=== PATIENT | female | born 1940 | race Caucasian/White ===

== ENCOUNTER → 2018-05-29 | Outpatient (CLI) | payer OTHER ==
[~2018-05-29] MED LIST: Lovastatin20 MG; TIROSINT100 MCG; VALS80
== END | disposition home or self-care (01) ==
LOC: LAB SHORT 08:15 → LAB EV 08:15
DX: R35.0 Frequency of micturition (principal); H81.10 Benign paroxysmal vertigo, unspecified ear; H91.92 Unspecified hearing loss, left ear; N18.3 Chronic kidney disease, stage 3 (moderate); E03.8 Other specified hypothyroidism; E78.2 Mixed hyperlipidemia; R73.01 Impaired fasting glucose
CPT/HCPCS: 87086

== ENCOUNTER 2019-02-09 07:44 | Day surgery (SDC) | payer OTHER ==
[~2019-02-09] VITALS: Ht 167.6 cm; Wt 80.8 kg
[~2019-02-09 07:44] MED LIST changes: +LEVO-T88 MCG PO
--- NOTE | 2019-02-09 08:59 | NUR ---
02/09/19 0859 Janis Jaimes BEST WITH AC
== END 2019-02-09 10:30 | disposition home or self-care (01) ==
LOC: ORSCSDS 07:44
PROVIDERS: Internal Medicine Gastroenterology
PROC: 0DJD8ZZ Inspection of Lower Intestinal Tract, Via Natural or Artificial Opening Endoscopic (ICD-10-PCS; principal; 2019-02-09 09:45)
DX: Z12.11 Encounter for screening for malignant neoplasm of colon (principal); K57.30 Diverticulosis of large intestine without perforation or abscess without bleeding; K64.8 Other hemorrhoids; Z86.010 Personal history of colon polyps; I10 Essential (primary) hypertension; E07.9 Disorder of thyroid, unspecified; Z79.899 Other long term (current) drug therapy
CPT/HCPCS: J2704; J7120

== ENCOUNTER → 2020-10-06 | Outpatient (CLI) | payer OTHER ==
[2020-10-07 07:42] LABS: Stool Occult Bld Immuno 1 Negative (NEGATIVE)
== END | disposition home or self-care (01) ==
LOC: LAB SHORT 12:30 → LAB 12:30
PROVIDERS: Physician Assistant
DX: K92.1 Melena (principal)
CPT/HCPCS: 82274

== ENCOUNTER → 2020-10-09 | Outpatient (CLI) | payer OTHER ==
[2020-10-10 09:05] LABS: Stool Occult Bld Immuno 1 Negative (NEGATIVE)
== END | disposition home or self-care (01) ==
LOC: LAB 10:00 → LAB SHORT 10:00
PROVIDERS: Physician Assistant
DX: K92.1 Melena (principal)
CPT/HCPCS: G0328

== ENCOUNTER → 2022-10-12 | Outpatient (CLI) | payer OTHER | END | disposition home or self-care (01) | LOC: LAB SHORT 10:05 | DX: R11.2 Nausea with vomiting, unspecified (principal) | CPT/HCPCS: 87086 ==

== ENCOUNTER → 2024-04-24 | Outpatient (CLI) | payer OTHER ==
[~2024-04-24] MED LIST changes: +LOSA50 PO; +METPRE4DP PO
== END ==
LOC: LAB 11:45 → LAB SHORT 11:45
DX: R30.0 Dysuria (principal)
CPT/HCPCS: 87077; 87086; 87186

== ENCOUNTER 2024-04-26 01:15 | Emergency (ER) | payer OTHER ==
[~2024-04-26] VITALS: Ht 167.6 cm; Wt 69.8 kg
[~2024-04-26 01:15] MED LIST changes: -LOSA50 PO; -METPRE4DP PO
[2024-04-26 01:55] VITALS: BP 183/108
[2024-04-26] MEDS ORDERED: METPRE4DP PO (01:59)
[2024-04-26] MEDS ORDERED: LOSA50 PO (01:59)
[2024-04-26] MEDS ORDERED: DiphenhydrAMINE HCL 25 MG Cap PO ONE (03:20)
== END 2024-04-26 03:26 | disposition home or self-care (01) ==
LOC: ER 01:15
DX: L29.9 Pruritus, unspecified (principal); R21 Rash and other nonspecific skin eruption; I10 Essential (primary) hypertension; E03.9 Hypothyroidism, unspecified; Z88.4 Allergy status to anesthetic agent; Z88.5 Allergy status to narcotic agent; Z79.890 Hormone replacement therapy; Z79.899 Other long term (current) drug therapy
CPT/HCPCS: 99282; A9270

== ENCOUNTER → 2024-08-25 | Outpatient (CLI) | payer OTHER ==
[~2024-08-25] MED LIST changes: +LOSA50 PO; +METPRE4DP PO
== END ==
LOC: LAB SHORT 10:20 → LAB 10:20
DX: R10.84 Generalized abdominal pain (principal)
CPT/HCPCS: 87086

== ENCOUNTER 2024-09-01 09:28 | Day surgery (SDC) | payer OTHER ==
[~2024-09-01] VITALS: Ht 167.6 cm; Wt 69.3 kg
[~2024-09-01 09:28] MED LIST changes: +Balanced Salt Epinephrine Irrigation Solution 500 mL IR SCH; +Diazepam 2 MG Tab PO PRN; +Lidocaine HCl/Pf 1% 5 ML VIAL XX SCH; +Moxifloxacin HCL 0.5 MG/0.1 ML 0.4MLSYR RIGHTEYE SCH; +Ondansetron 4 MG SoluTab MM PRN; +PHENYLEPHRINE\\TROPICAMIDE\\TETRACAINE OPHTHALMIC DILATING SOLN RIGHTEYE PRN; +Povidone-Iodine 450 DROP/30 ML Solution ONE; +Povidone-Iodine 450 DROP/30 ML Solution RIGHTEYE SCH; +Tetracaine HCl/Pf 0.5% Opth Soln 4 ml ONE; +Triamcinolone Inj Susp 40 MG / ML 1ML Vial INJ SCH; +Triamcinolone Inj Susp 40 MG / ML 1ML Vial ONE; +diazePAM 2 MG,diazePAM 5 MG PO SCH
[2024-09-01] MEDS ORDERED: Diazepam 2 MG Tab ONE (09:55)
[2024-09-01] MEDS ORDERED: Diazepam 5 MG Tab ONE (09:55)
--- NOTE | 2024-09-01 10:51 | NUR ---
09/01/24 1051 Dorota Diaz BP 180/80, HR 82, O2 100%. PT RESTING COMFORTABLY WITH BLOW BY AT 10L.
[2024-09-01 11:02] VITALS: BP 159/73
== END 2024-09-01 11:15 | disposition home or self-care (01) ==
LOC: ORSCSDS 09:28
PROVIDERS: Ophthalmology
PROC: 08RJ3JZ Replacement of Right Lens with Synthetic Substitute, Percutaneous Approach (ICD-10-PCS; principal; 2024-09-01 10:30)
DX: H25.813 Combined forms of age-related cataract, bilateral (principal); K21.9 Gastro-esophageal reflux disease without esophagitis; E78.5 Hyperlipidemia, unspecified; I10 Essential (primary) hypertension; Z79.899 Other long term (current) drug therapy
CPT/HCPCS: A9270; J3301; V2632

== ENCOUNTER 2024-09-08 07:59 | Day surgery (SDC) | payer OTHER ==
[~2024-09-08] VITALS: Ht 167.6 cm; Wt 69.6 kg
[~2024-09-08 07:59] MED LIST changes: -Balanced Salt Epinephrine Irrigation Solution 500 mL IR SCH; -Diazepam 2 MG Tab PO PRN; -Lidocaine HCl/Pf 1% 5 ML VIAL XX SCH; -Moxifloxacin HCL 0.5 MG/0.1 ML 0.4MLSYR RIGHTEYE SCH; -Ondansetron 4 MG SoluTab MM PRN; -PHENYLEPHRINE\\TROPICAMIDE\\TETRACAINE OPHTHALMIC DILATING SOLN RIGHTEYE PRN; -Povidone-Iodine 450 DROP/30 ML Solution RIGHTEYE SCH; -Triamcinolone Inj Susp 40 MG / ML 1ML Vial INJ SCH; -diazePAM 2 MG,diazePAM 5 MG PO SCH
[2024-09-08] MEDS ORDERED: Diazepam 2 MG Tab ONE (08:29)
[2024-09-08] MEDS ORDERED: Diazepam 5 MG Tab ONE (08:29)
--- NOTE | 2024-09-08 08:53 | NUR ---
09/08/24 0853 Darling Palmer PATIENT REPORTS ANXIETY LEVEL AT 05/28 PRIOR TO ADMINISTRATION OF VALIUM 7MG PO @ 0843. CALL LIGHT AT BEDSIDE. CONTINUOUS SPO2 AND HR MONITORING IN PLACE. TETRACAINE IN AT 0845. PLEDGETT IN AT 0846.
--- NOTE | 2024-09-08 09:23 | NUR ---
09/08/24 0923 Tanisha Hammonds VITALS AT 0923 BP:143/63 P:69 O2:97% 10 LITERS OF BLOW BY OXYGEN
[2024-09-08] MEDS ORDERED: Balanced Salt Epinephrine Irrigation Solution 500 mL IR ONE (09:27)
[2024-09-08] MEDS ORDERED: Moxifloxacin HCL 0.5 MG/0.1 ML 0.4MLSYR LEFTEYE ONE (09:27)
[2024-09-08] MEDS ORDERED: Lidocaine HCl/Pf 1% 5 ML VIAL XX ONE (09:27)
[2024-09-08 09:45] VITALS: BP 136/69
== END 2024-09-08 10:00 | disposition home or self-care (01) ==
LOC: ORSCSDS 07:59
PROVIDERS: Ophthalmology
PROC: 08RK3JZ Replacement of Left Lens with Synthetic Substitute, Percutaneous Approach (ICD-10-PCS; principal; 2024-09-08 09:30)
DX: H25.812 Combined forms of age-related cataract, left eye (principal); Z96.1 Presence of intraocular lens; K21.9 Gastro-esophageal reflux disease without esophagitis; E78.5 Hyperlipidemia, unspecified; I10 Essential (primary) hypertension; E03.9 Hypothyroidism, unspecified; Z79.899 Other long term (current) drug therapy
CPT/HCPCS: A9270; J2003; J3301; V2632